=== PATIENT | male | born 1960 | race Caucasian/White ===

== ENCOUNTER → 2020-07-01 | Outpatient (REF) | payer MEDICARE, OTHER | LOC: M LAB REF 19:06 | PROVIDERS: ATTEND Physician Assistant | DX: D23.5 Other benign neoplasm of skin of trunk (principal) ==

== ENCOUNTER → 2021-02-24 | Outpatient (REF) | payer OTHER | LOC: M LAB REF 18:04 | PROVIDERS: ATTEND Internal Medicine | DX: M10.9 Gout, unspecified (principal) ==

== ENCOUNTER → 2022-02-28 | Outpatient (REF) | payer OTHER, BC | LOC: M LAB REF 16:32 | PROVIDERS: ATTEND Internal Medicine | DX: E79.0 Hyperuricemia without signs of inflammatory arthritis and tophaceous disease (principal) ==

== ENCOUNTER → 2022-03-25 | Outpatient (CLI) | payer BC, OTHER | LOC: M CARPUL 09:07 | PROVIDERS: ATTEND Internal Medicine | DX: I77.810 Thoracic aortic ectasia (principal) ==

== ENCOUNTER → 2023-03-01 | Outpatient (REF) | payer OTHER | LOC: M LAB REF 12:25 | PROVIDERS: ATTEND Internal Medicine | DX: M10.9 Gout, unspecified (principal); N52.9 Male erectile dysfunction, unspecified ==

== ENCOUNTER → 2024-03-04 | Outpatient (REF) | payer OTHER, BC | LOC: M LAB REF 12:31 | PROVIDERS: ATTEND Internal Medicine | DX: M10.9 Gout, unspecified (principal) ==

== ENCOUNTER → 2025-03-03 | Outpatient (REF) | payer BC, OTHER ==
[2025-03-03 15:01] LABS: HEPATITIS C VIRUS ABY INDEX < 0.02 INDEX (<0.8)
== END ==
LOC: M LAB REF 12:26
PROVIDERS: ATTEND Internal Medicine
DX: M10.9 Gout, unspecified (principal); Z13.89 Encounter for screening for other disorder